=== PATIENT | male | born 1950 | race Caucasian/White ===

== ENCOUNTER 2020-08-10 13:57 | Emergency (ER) | payer OTHER ==
--- NOTE | 2020-08-10 14:15 | ERPHSYRPT ---
- History of Present Illness Time Seen by Provider: 08/10/20 14:14 Historian: patient, family Exam Limitations: no limitations Patient Subjective Stated Complaint: pt here for n/v and dizzines and headache today.he feels like he is unsteady Triage Nursing Assessment: pt alert, but sleepy, arrived per wc, resp easy, face mask in place, skin wd/dp Physician History: This is a 70-year-old white male has a history of Parkinson's disease and presents with initial "upset stomach" followed by several episodes of vomiting a nd then dizziness. 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 Patient had a history of positive COVID-19 infection back in February 2020 and he has not been tested recently. Family members around him have all had a vaccine for the COVID-19. Patient has not been on any new medications. He also has an associated headache. He did not hit his head. He does not have chest pain he does not have any shortness of breath. He has not had fevers or chills. Patient's primary care physician is Dr. Chan. Timing/Duration: today Activities at Onset: none Quality: other ("Generalized upset stomach") Abdominal Pain Onset Location: generalized abdomen Pain Radiation: no radiation Severity of Pain-Max: none Severity of Pain-Current: none Allergies/Adverse Reactions: Penicillins Allergy (Verified 08/10/20 14:06) kidney pain Sulfa (Sulfonamide Antibiotics) Allergy (Verified 08/10/20 14:06) kidney pain Home Medications: Sildenafil Citrate [Viagra] 50 mg PO UD 03/15/15 [History] Carbidopa/Levodopa 25/100 mg [Sinemet 25/100 MG] 1 ea QID 08/10/20 [History] Hx Tetanus, Diphtheria Vaccination/Date Given: No Hx Influenza Vaccination/Date Given: No Hx Pneumococcal Vaccination/Date Given: No Immunizations Up to Date: Yes Travel Risk - International Travel Have you traveled outside of the country in past 3 weeks: No - Coronavirus Screening Are you exhibiting any of the following symptoms?: Yes Symptoms: Vomiting/Diarrhea Close contact with a COVID-19 positive Pt in past 14-21 Days: No - Vaccine Status Have you recieved a Covid-19 vaccination: No - Review of Systems Constitutional: Weakness Eyes: No Symptoms Ears, Nose, & Throat: No Symptoms Respiratory: No Symptoms Cardiac: No Symptoms Abdominal/Gastrointestinal: Nausea, Vomiting, No Abdominal Pain Genitourinary Symptoms: No Symptoms Musculoskeletal: No Symptoms Skin: No Symptoms Neurological: No Symptoms Psychological: No Symptoms Endocrine: No Symptoms Hematologic/Lymphatic: No Symptoms Immunological/Allergic: No Symptoms All Other Systems: Reviewed and Negative - Past Medical History Pertinent Past Medical History: Yes Neurological History: Migraines ENT History: No Pertinent History Cardiac History: No Pertinent History Respiratory History: No Pertinent History Endocrine Medical History: No Pertinent History Musculoskeletal History: Arthritis GI Medical History: Gallbladder Disease History: No Pertinent History Psycho-Social History: No Pertinent History Male Reproductive Disorders: Prostate Problems, Other Other Medical History: parkinsons - Past Surgical History Past Surgical History: Yes Neuro Surgical History: No Pertinent History Cardiac: No Pertinent History Respiratory: No Pertinent History Gastrointestinal: No Pertinent History Genitourinary: No Pertinent History Musculoskeletal: Joint Replacement, Orthopedic Surgery Male Surgical History: No Pertinent History Other Surgical History: right hip replacement, right ankle - Social History Smoking Status: Former smoker How long have you smoked: 4 years Exposure to second hand smoke: No Drug Use: none Patient Lives Alone: No - Nursing Vital Signs Nursing Vital Signs: Initial Vital Signs Temperature 97.6 F 08/10/20 14:00 Pulse Rate 88 08/10/20 14:00 Respiratory Rate 16 08/10/20 14:00 Blood Pressure 132/82 08/10/20 14:00 O2 Sat by Pulse Oximetry 97 08/10/20 14:00 Pain Scale Pain Intensity 0 - Physical Exam General Appearance: no apparent distress, alert, anxiety Eye Exam: PERRL/EOMI, eyes nml inspection Ears, Nose, Throat Exam: normal ENT inspection, moist mucous membranes Neck Exam: normal inspection, non-tender, supple, full range of motion Respiratory Exam: normal breath sounds, lungs clear, airway intact, No chest tenderness, No respiratory distress Cardiovascular Exam: regular rate/rhythm, normal heart sounds, normal peripheral pulses Gastrointestinal/Abdomen Exam: soft, normal bowel sounds, No tenderness, No guarding Rectal Exam: not done Back Exam: normal inspection, normal range of motion, No CVA tenderness, No vertebral tenderness Extremity Exam: normal inspection, normal range of motion, pelvis stable Neurologic Exam: alert, oriented x 3, cooperative, 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 However there are borderline T wave abnormalities present in the inferior leads. When compared to an EKG dated 03/05/2015 the borderline T abnormalities are new. However the remainder of the EKG has not changed.) Ordered Tests: Active Orders 24 hr Category Date Time Status EKG-ER Only STAT Care 08/10/20 14:23 Active IV Insertion STAT Care 08/10/20 14:23 Active HEAD WITHOUT CONTRAST [CT] Stat Exams 08/10/20 14:25 Completed AMYLASE Stat Lab 08/10/20 15:02 Completed BLOOD CULTURE Stat Lab 08/10/20 15:10 Ordered CBC W DIFF Stat Lab 08/10/20 15:02 Completed CMP Stat Lab 08/10/20 15:02 Completed INFLUENZA A+B SHELLY Stat Lab 08/10/20 15:10 Completed LIPASE Stat Lab 08/10/20 15:02 Completed Lactic Acid Stat Lab 08/10/20 14:23 Completed Lactic Acid Stat Lab 08/10/20 16:40 Received [place] Screen Stat Lab 08/10/20 Completed TROPONIN Q3H Lab 08/10/20 15:02 Completed TROPONIN Q3H Lab 08/10/20 17:30 Ordered TROPONIN Q3H Lab 08/10/20 20:30 Ordered TROPONIN Q3H Lab 08/10/20 23:30 Ordered TROPONIN Q3H Lab 08/11/20 02:30 Ordered UA W/RFX UR CULTURE Stat Lab 08/10/20 15:58 Completed Medication Summary Generic Name Dose Route Start Last Admin Trade Name Freq PRN Reason Stop Dose Admin Sodium Chloride 1,000 mls @ 999 mls/hr 08/10/20 15:48 08/10/20 15:59 Sodium Chloride 0.9% 1000 Ml IV 08/10/20 16:48 999 mls/hr .Q1H1M STA Administration Discontinued Medications Generic Name Dose Route Start Last Admin Trade Name Freq PRN Reason Stop Dose Admin Sodium Chloride 1,000 mls @ 999 mls/hr 08/10/20 14:23 08/10/20 15:58 Sodium Chloride 0.9% 1000 Ml IV 08/10/20 15:23 Infused .Q1H1M STA Infusion Sodium Chloride Confirm 08/10/20 14:32 Sodium Chloride 0.9% 1000 Ml Administered 08/10/20 14:33 Dose 1,000 mls @ ud .ROUTE .STK-MED ONE Sodium Chloride Confirm 08/10/20 15:57 Sodium Chloride 0.9% 1000 Ml Administered 08/10/20 15:58 Dose 1,000 mls @ ud .ROUTE .STK-MED ONE Ondansetron HCl 4 mg 08/10/20 14:23 08/10/20 14:34 Zofran 4 Mg/2 Ml Vial IV 08/10/20 14:24 4 mg STAT ONE Administration Ondansetron HCl Confirm 08/10/20 14:31 Zofran 4 Mg/2 Ml Vial Administered 08/10/20 14:32 Dose 4 mg .ROUTE .STK-MED ONE Lab/Rad Data: Laboratory Result Diagrams 08/10/20 15:02 08/10/20 15:02 Laboratory Results 08/10/20 08/10/20 08/10/20 Range/Units Unknown 15:58 15:10 WBC (4.0-10.5) K/mm3 RBC (4.1-5.6) M/mm3 Hgb (12.5-18.0) gm/dl Hct (42-50) % MCV (78-100) fl MCH (26-32) pg MCHC (32-36) g/dl RDW (11.5-14.0) % Plt Count (150-450) K/mm3 MPV (7.5-11.0) fl Gran % (36.0-66.0) % Eos # (Auto) (0-0.5) Absolute Lymphs (auto) (1.0-4.6) Absolute Monos (auto) (0.0-1.3) Lymphocytes % (24.0-44.0) % Monocytes % (0.0-12.0) % Eosinophils % (0.00-5.0) % Basophils % (0.0-0.4) % Absolute Granulocytes (1.4-6.9) Basophils # (0-0.4) Sodium (137-145) mmol/L Potassium (3.5-5.1) mmol/L Chloride (98-107) mmol/L Carbon Dioxide (22-30) mmol/L Anion Gap (5-15) MEQ/L BUN (9-20) mg/dL Creatinine (0.66-1.25) mg/dL Estimated GFR ML/MIN Glucose (74-106) mg/dL Lactic Acid (0.4-2.0) Calcium (8.4-10.2) mg/dL Total Bilirubin (0.2-1.3) mg/dL AST (17-59) U/L ALT (0-50) U/L Alkaline Phosphatase (38-126) U/L Troponin I (0.000-0.034) ng/mL Serum Total Protein (6.3-8.2) g/dL Albumin (3.5-5.0) g/dL Amylase (30-110) U/L Lipase (23-300) U/L Urine Color YELLOW (YELLOW) Urine Appearance CLEAR (CLEAR) Urine pH 5.0 (5-6) Ur Specific [place] 1.024 (1.005-1.025) Urine Protein NEGATIVE (Negative) Urine Ketones SMALL (NEGATIVE) Urine Blood MODERATE (0-5) Drake/ul Urine Nitrite NEGATIVE (NEGATIVE) Urine Bilirubin NEGATIVE (NEGATIVE) Urine Urobilinogen NEGATIVE (0-1) mg/dL Ur Leukocyte Esterase NEGATIVE (NEGATIVE) Urine WBC (Auto) NONE (0-5) /HPF Urine RBC (Auto) 16-25 (0-2) /HPF U Hyaline Cast (Auto) 0-2 (0-2) /LPF U Epithel Cells (Auto) NONE (FEW) /HPF Urine Bacteria (Auto) NONE (NEGATIVE) /HPF Urine Mucus (Auto) SLIGHT (NEGATIVE) /HPF Urine Culture Reflexed NO (NO) Urine Glucose NEGATIVE (NEGATIVE) mg/dL Monoscreen NEGATIVE (Negative) Influenza Type A Ag NEGATIVE (NEGATIVE) Influenza Type B Ag NEGATIVE (NEGATIVE) 08/10/20 08/10/20 08/10/20 Range/Units 15:02 15:02 15:02 WBC 13.3 H (4.0-10.5) K/mm3 RBC 4.88 (4.1-5.6) M/mm3 Hgb 16.5 (12.5-18.0) gm/dl Hct 47.4 (42-50) % MCV 97.1 (78-100) fl MCH 33.8 H (26-32) pg MCHC 34.8 (32-36) g/dl RDW 12.7 (11.5-14.0) % Plt Count 146 L (150-450) K/mm3 MPV 9.1 (7.5-11.0) fl Gran % 91.3 H (36.0-66.0) % Eos # (Auto) 0.03 (0-0.5) Absolute Lymphs (auto) 0.62 L (1.0-4.6) Absolute Monos (auto) 0.49 (0.0-1.3) Lymphocytes % 4.7 L (24.0-44.0) % Monocytes % 3.7 (0.0-12.0) % Eosinophils % 0.2 (0.00-5.0) % Basophils % 0.1 (0.0-0.4) % Absolute Granulocytes 12.10 H (1.4-6.9) Basophils # 0.01 (0-0.4) Sodium 135 L (137-145) mmol/L Potassium 3.9 (3.5-5.1) mmol/L Chloride 102 (98-107) mmol/L Carbon Dioxide 21 L (22-30) mmol/L Anion Gap 16.0 H (5-15) MEQ/L BUN 21 H (9-20) mg/dL Creatinine 0.99 (0.66-1.25) mg/dL Estimated GFR > 60.0 ML/MIN Glucose 176 H (74-106) mg/dL Lactic Acid (0.4-2.0) Calcium 8.8 (8.4-10.2) mg/dL Total Bilirubin 1.00 (0.2-1.3) mg/dL AST 28 (17-59) U/L ALT 17 (0-50) U/L Alkaline Phosphatase 82 (38-126) U/L Troponin I < 0.012 (0.000-0.034) ng/mL Serum Total Protein 7.0 (6.3-8.2) g/dL Albumin 4.1 (3.5-5.0) g/dL Amylase 66 (30-110) U/L Lipase 80 (23-300) U/L Urine Color (YELLOW) Urine Appearance (CLEAR) Urine pH (5-6) Ur Specific [place] (1.005-1.025) Urine Protein (Negative) Urine Ketones (NEGATIVE) Urine Blood (0-5) Drake/ul Urine Nitrite (NEGATIVE) Urine Bilirubin (NEGATIVE) Urine Urobilinogen (0-1) mg/dL Ur Leukocyte Esterase (NEGATIVE) Urine WBC (Auto) (0-5) /HPF Urine RBC (Auto) (0-2) /HPF U Hyaline Cast (Auto) (0-2) /LPF U Epithel Cells (Auto) (FEW) /HPF Urine Bacteria (Auto) (NEGATIVE) /HPF Urine Mucus (Auto) (NEGATIVE) /HPF Urine Culture Reflexed (NO) Urine Glucose (NEGATIVE) mg/dL Monoscreen (Negative) Influenza Type A Ag (NEGATIVE) Influenza Type B Ag (NEGATIVE) 08/10/20 Range/Units 14:23 WBC (4.0-10.5) K/mm3 RBC (4.1-5.6) M/mm3 Hgb (12.5-18.0) gm/dl Hct (42-50) % MCV (78-100) fl MCH (26-32) pg MCHC (32-36) g/dl RDW (11.5-14.0) % Plt Count (150-450) K/mm3 MPV (7.5-11.0) fl Gran % (36.0-66.0) % Eos # (Auto) (0-0.5) Absolute Lymphs (auto) (1.0-4.6) Absolute Monos (auto) (0.0-1.3) Lymphocytes % (24.0-44.0) % Monocytes % (0.0-12.0) % Eosinophils % (0.00-5.0) % Basophils % (0.0-0.4) % Absolute Granulocytes (1.4-6.9) Basophils # (0-0.4) Sodium (137-145) mmol/L Potassium (3.5-5.1) mmol/L Chloride (98-107) mmol/L Carbon Dioxide (22-30) mmol/L Anion Gap (5-15) MEQ/L BUN (9-20) mg/dL Creatinine (0.66-1.25) mg/dL Estimated GFR ML/MIN Glucose (74-106) mg/dL Lactic Acid 3.3 H (0.4-2.0) Calcium (8.4-10.2) mg/dL Total Bilirubin (0.2-1.3) mg/dL AST (17-59) U/L ALT (0-50) U/L Alkaline Phosphatase (38-126) U/L Troponin I (0.000-0.034) ng/mL Serum Total Protein (6.3-8.2) g/dL Albumin (3.5-5.0) g/dL Amylase (30-110) U/L Lipase (23-300) U/L Urine Color (YELLOW) Urine Appearance (CLEAR) Urine pH (5-6) Ur Specific [place] (1.005-1.025) Urine Protein (Negative) Urine Ketones (NEGATIVE) Urine Blood (0-5) Drake/ul Urine Nitrite (NEGATIVE) Urine Bilirubin (NEGATIVE) Urine Urobilinogen (0-1) mg/dL Ur Leukocyte Esterase (NEGATIVE) Urine WBC (Auto) (0-5) /HPF Urine RBC (Auto) (0-2) /HPF U Hyaline Cast (Auto) (0-2) /LPF U Epithel Cells (Auto) (FEW) /HPF Urine Bacteria (Auto) (NEGATIVE) /HPF Urine Mucus (Auto) (NEGATIVE) /HPF Urine Culture Reflexed (NO) Urine Glucose (NEGATIVE) mg/dL Monoscreen (Negative) Influenza Type A Ag (NEGATIVE) Influenza Type B Ag (NEGATIVE) - Progress Progress: improved Progress Note: 08/10/20 15:[address] of head without contrast 08/10/20 16:16 Patient states she is feeling a lot better. Counseled pt/family regarding: lab results, diagnosis, need for follow-up, rad results - Departure Departure Disposition: Home Clinical Impression: Vomiting, Mild dehydration Condition: Stable Critical Care Time: No Referrals: DEVIN CHAN MD [Primary Care Provider] - Additional Instructions: Drink plenty of fluids. Call Dr. Chan's office tomorrow to make arrangements for follow-up appointment. Return to the emergency department if symptoms worsen. Continue your medications as prescribed. Quarantine yourself until the results of your COVID-19 lab test has returned. Prescriptions: Ondansetron ODT 4 MG [Zofran Odt 4 mg] 4 mg PO Q6H PRN PRN #10 tab.rapdis PRN Reason: Vomiting
[2020-08-10] MEDS ORDERED: Zofran 4 MG/2 ML VIAL ONE (14:31)
[2020-08-10] MEDS ORDERED: Sodium Chloride 0.9% 1000 ML 1,000 ML ONE ×2 (14:32→15:57)
[2020-08-10] MEDS: Sodium Chloride 0.9% 1000 ML 1,000 ML IV STA ×2 (14:33→15:59)
[2020-08-10] MEDS: Zofran 4 MG/2 ML VIAL IV ONE (14:34)
[2020-08-10 15:03] LABS: BASOPHIL % 0.1 % (0.0-0.4); Basophil (Absolute #) 0.01 (0-0.4); Eosinophil % 0.2 % (0.00-5.0); Eosinophil (Absolute #) 0.03 (0-0.5); Hematocrit 47.4 % (42-50); Hemoglobin 16.5 gm/dl (12.5-18.0); Lymphocyte (Absolute #) 0.62 (1.0-4.6); Lymphocytes % 4.7 % (24.0-44.0); Mean Cell Volume 97.1 fl (78-100); Mean Corpuscular Hemoglobin 33.8 pg (26-32); Mean Corpuscular Hgb Concent. 34.8 g/dl (32-36); Mean Platelet Volume 9.1 fl (7.5-11.0); Monocyte (Absolute #) 0.49 (0.0-1.3); Monocytes % 3.7 % (0.0-12.0); Neutrophil % 91.3 % (36.0-66.0); Platelet Count 146 K/mm3 (150-450); Red Blood Count 4.88 M/mm3 (4.1-5.6); Red Cell Distribution Width 12.7 % (11.5-14.0); White Blood Count 13.3 K/mm3 (4.0-10.5)
[2020-08-10 15:16] LABS: ALBUMIN 4.1 g/dL (3.5-5.0); ALKALINE PHOSPHATASE 82 U/L (38-126); AMYLASE 66 U/L (30-110); BLOOD UREA NITROGEN 21 mg/dL (9-20); CHLORIDE 102 mmol/L (98-107); Calcium 8.8 mg/dL (8.4-10.2); Carbon Dioxide 21 mmol/L (22-30); Creatinine 1 0.99 mg/dL (0.66-1.25); EST GLOMERULAR FILTRATION RATE > 60.0 ML/MIN; Glucose 176 mg/dL (74-106); LIPASE 80 U/L (23-300); Potassium 3.9 mmol/L (3.5-5.1); SGOT/AST 28 U/L (17-59); SGPT/ALT 17 U/L (0-50); SODIUM 135 mmol/L (137-145)
--- NOTE | 2020-08-10 15:23 | XRAY ---
Indication: Dizziness, nausea, and vomiting. History of Parkinson's disease. Multiple contiguous axial images obtained through the head without contrast. Comparison: None Normal appearing brain parenchyma, ventricles, and bony calvarium for patient's age. Visualized paranasal sinuses and mastoid air cells are clear. Impression: Normal CT head without contrast exam.
[2020-08-10 15:28] LABS: INFLUENZA A NEGATIVE (NEGATIVE); INFLUENZA B NEGATIVE (NEGATIVE)
[2020-08-10 16:41] LABS: Appearance CLEAR (CLEAR); Bilirubin NEGATIVE (NEGATIVE); Blood MODERATE Ery/ul (0-5); Glucose NEGATIVE (NEGATIVE); Hyaline Casts 0-2 /LPF (0-2); Ketones SMALL (NEGATIVE); Leukocyte Esterase NEGATIVE (NEGATIVE); Mucus SLIGHT /HPF (NEGATIVE); Nitrite NEGATIVE (NEGATIVE); Protein,Urine Dip NEGATIVE (Negative); Specific Gravity 1.024 (1.005-1.025); Urobilinogen NEGATIVE mg/dL (0-1)
[2020-08-10 17:03] VITALS: BP 120/71; PULSE 100; O2SAT 95
== END 2020-08-10 17:16 | disposition home or self-care (01) ==
LOC: ED 13:57
DX: R11.11 Vomiting without nausea (principal); E86.0 Dehydration
CPT/HCPCS: 36000; 36415; 70450; 80053; 81001; 82150; 83605; 83690; 84484; 85025; 86308; 87040; 87400; 93005; 96360; 96361; 96374; 99284; U0003; J2405

== ENCOUNTER 2021-12-14 05:56 | Emergency (ER) | payer OTHER ==
[2021-12-14] MEDS ORDERED: MORPHINE SULFATE 4 MG INJ IV ONE (06:40)
--- NOTE | 2021-12-14 06:40 | ERPHSYRPT ---
- History of Present Illness Time Seen by Provider: 12/14/21 06:36 Source: patient Exam Limitations: no limitations Patient Subjective Stated Complaint: pt states he has been having extreme sciatic pain. c/o lt back painradiating down to lt knee at times. Triage Nursing Assessment: pt arrive per ambulance and transfers to stretcher with assist of 5. pt c/o pain with movement. pt alert and oriented, answers questions approp. skin pink warm and dry. open areas to lt anterior lower leg. pedal pulse and cap refill to lt lower wnl. pt reports no diff bowel or bladder incontinence. Physician History: Patient is a 71-year-old male presents to our ED via EMS for evaluation of acute onset low back pain. Patient admits to history of chronic low back pain. Patient awoke early this morning went to the restroom sat on the toilet. He had no difficulty voiding. Upon standing patient experienced a severe lower lumbar pain radiated to his left leg. Patient had left knee surgery approximately 3 months ago. No fever. No recent back procedure. No saddle anesthesia. No change in bowel bladder function. Pain worse with movement and palpation. Pain improved with rest. Patient received 15 mg of Toradol IV prior to arrival. This improved patient's pain from severe to 3 out of 10. Patient is comfortable as long as he is laying flat. Patient has been experiencing some low back pain over the past week but became acutely worse this morning. Son at bedside. They voiced no other complaints or concerns at this time. Timing/Duration: today Method of Injury: bending Quality: sharp Back Pain Location: lumbar spine Back Pain Radiation: lower legs (Pain radiates down left lower leg.) Severity of Pain-Max: moderate Severity of Pain-Current: mild Modifying Factors: Improves With: movement Associated Symptoms: other (No associated abdominal pain or chest pain. No lower extremity weakness), No light-headedness, No dizziness Previous symptoms: same symptoms as today (Patient has had similar pain in the past however not to this level of intensity) Allergies/Adverse Reactions: Penicillins Allergy (Verified 12/14/21 06:18) kidney pain Sulfa (Sulfonamide Antibiotics) Allergy (Verified 12/14/21 06:18) kidney pain Home Medications: Sildenafil Citrate [Viagra] 50 mg PO UD 03/15/15 [History] Carbidopa/Levodopa 25/100 mg [Sinemet 25/100 MG] 1 ea QID 08/10/20 [History] Hx Tetanus, Diphtheria Vaccination/Date Given: No Hx Influenza Vaccination/Date Given: No Hx Pneumococcal Vaccination/Date Given: No Immunizations Up to Date: No Travel Risk - International Travel Have you traveled outside of the country in past 3 weeks: No - Coronavirus Screening Are you exhibiting any of the following symptoms?: No Close contact with a COVID-19 positive Pt in past 14-21 Days: No - Vaccine Status Have you recieved a Covid-19 vaccination: No - Review of Systems Constitutional: No Symptoms, No Fever, No Chills Eyes: No Symptoms Ears, Nose, & Throat: No Symptoms Respiratory: No Symptoms, No Cough, No Dyspnea Cardiac: No Symptoms, No Chest Pain, No Edema, No Syncope Abdominal/Gastrointestinal: No Symptoms, No Abdominal Pain, No Nausea, No Vomiting, No Diarrhea Genitourinary Symptoms: No Symptoms, No Dysuria Musculoskeletal: No Symptoms, No Back Pain, No Neck Pain Skin: No Symptoms, No Rash Neurological: No Symptoms, No Dizziness, No Focal Weakness, No Sensory Changes Psychological: No Symptoms Endocrine: No Symptoms Hematologic/Lymphatic: No Symptoms Immunological/Allergic: No Symptoms All Other Systems: Reviewed and Negative - Past Medical History Pertinent Past Medical History: Yes Neurological History: Migraines ENT History: No Pertinent History Cardiac History: No Pertinent History Respiratory History: No Pertinent History Endocrine Medical History: No Pertinent History Musculoskeletal History: Arthritis GI Medical History: Gallbladder Disease History: No Pertinent History Psycho-Social History: No Pertinent History Male Reproductive Disorders: Prostate Problems, Other Other Medical History: parkinsons - Past Surgical History Past Surgical History: Yes Neuro Surgical History: No Pertinent History Cardiac: No Pertinent History Respiratory: No Pertinent History Gastrointestinal: Cholecystectomy Genitourinary: No Pertinent History Musculoskeletal: Joint Replacement, Orthopedic Surgery Male Surgical History: No Pertinent History Other Surgical History: right hip replacement, right ankle, lt knee replacement - Social History Smoking Status: Former smoker How long have you smoked: 4 years Exposure to second hand smoke: No Drug Use: none Patient Lives Alone: No - Nursing Vital Signs Nursing Vital Signs: Initial Vital Signs Temperature 97.6 F 12/14/21 05:59 Pulse Rate 66 12/14/21 05:59 Respiratory Rate 16 12/14/21 05:59 Blood Pressure 144/86 12/14/21 05:59 O2 Sat by Pulse Oximetry 100 12/14/21 05:59 Pain Scale Pain Intensity [Left Back] 4 Pain Intensity 4 - Physical Exam General Appearance: no apparent distress, alert Eye Exam: PERRL/EOMI, eyes nml inspection Ears, Nose, Throat Exam: normal ENT inspection, TMs normal, pharynx normal Neck Exam: normal inspection, non-tender, supple, full range of motion, No meningismus, No midline tenderness Respiratory Exam: normal breath sounds, lungs clear, airway intact, No respiratory distress Cardiovascular Exam: regular rate/rhythm, normal heart sounds, normal peripheral pulses Gastrointestinal Exam: soft, No normal bowel sounds, No tenderness, No mass Back Exam: other (Tenderness to palpation at the lumbar sacral spine. Overlying soft tissue intact. Pain reproduced with palpation.) Extremity Exam: normal inspection, normal range of motion, No calf tenderness, No pedal edema Peripheral Pulses: dorsalis-pedis (R): 2+, dorsalis-pedis (L): 2+ Neurologic Exam: alert, oriented x 3, cooperative, entry operator II-XII nml as tested, normal mood/affect, nml station & gait, sensation nml, No motor deficits Skin Exam: normal color, warm, dry, No rash Lymphatic Exam: No adenopathy SpO2 Interpretation: normal SpO2: 100 O2 Delivery: Room Air - Course Nursing assessment & vital signs reviewed: Yes Ordered Tests: Active Orders 24 hr Category Date Time Status LUMBAR SPINE W/O [CT] Stat Exams 12/14/21 06:32 Ordered UA W/RFX CULTURE Stat Lab 12/14/21 Ordered - Progress Progress: improved Progress Note: Patient endorsed to Dr. Dukes at approximately [address] scan and urinalysis pending. Dr. Dukes make final disposition. 12/14/21 06:47 Counseled pt/family regarding: diagnosis, rad results - Departure Clinical Impression: Sciatica, Lumbosacral strain Condition: Stable Critical Care Time: No Referrals: DEVIN CHAN MD [Primary Care Provider] - Follow up/PCP as directed
[2021-12-14] MEDS ORDERED: MORPHINE SULFATE 4 MG INJ ONE (06:41)
[2021-12-14 08:25] LABS: RBC 0-2 /HPF (0-2)
[2021-12-14 08:26] LABS: Appearance CLEAR (CLEAR); Bilirubin NEGATIVE (NEGATIVE); Dipstick done @ ? MAIN LAB; Glucose NEGATIVE (NEGATIVE); Ketones NEGATIVE (NEGATIVE); Nitrite NEGATIVE (NEGATIVE); Ph 7.5 (5-6); Protein,Urine Dip NEGATIVE (Negative); RBC TRACE-LYSED Ery/ul (0-5); Specific Gravity 1.015 (1.005-1.025); Urobilinogen 0.2 mg/dL (0-1)
[2021-12-14 08:27] LABS: Urine Cultured Indicated? NO
[2021-12-14] MEDS ORDERED: solu-MEDROL 125 MG, Sterile H2O 10 ml 2 ML IM ONE ×2 (08:27)
[2021-12-14] MEDS ORDERED: Norflex 60 MG/2 ML IM ONE (08:28)
[2021-12-14] MEDS ORDERED: PERCOCET TABLET 5/325MG PO STA (08:28)
[2021-12-14] MEDS ORDERED: Norflex 60 MG/2 ML ONE (08:32)
[2021-12-14] MEDS ORDERED: Sterile H2O 10 ml IJ ONE (08:32)
[2021-12-14] MEDS ORDERED: PERCOCET TABLET 5/325MG ONE (08:32)
[2021-12-14] MEDS ORDERED: solu-MEDROL ONE (08:33)
--- NOTE | 2021-12-14 08:53 | XRAY ---
Indication: Low back, left leg, and left flank pain. Multiple contiguous axial images obtained through the lumbar spine. Sagittal and coronal reformatted images obtained. Comparison: CT abdomen/pelvis March 05, 2015 Axial images again demonstrate mild broad-based disc bulge at L3-S1 levels and minimal L4-L5 degenerative vacuum disc phenomena. Facets are symmetric again with L5-S1 degenerative facet hypertrophy. No acute fracture, suspicious bony lesions, or spinal canal stenosis. Sagittal and coronal reformatted images again demonstrates normal lumbar alignment. Stable L4-L5 disc space narrowing. No acute compression fracture or subluxation. Visualized noncontrasted soft tissues again demonstrates minimal aortoiliac calcifications. Impression: 1. Grossly stable L3-S1 degenerative disc disease. Outpatient MRI may yield further information if there remains further clinical concern. 2. Again incidental arteriosclerotic disease. 3. Remaining CT lumbar spine without contrast exam is negative.
[2021-12-14 08:57] VITALS: PULSE 76; O2SAT 100
[2021-12-14 09:05] VITALS: BP 147/86
== END 2021-12-14 09:24 | disposition home or self-care (01) ==
LOC: ED 05:56
DX: M54.32 Sciatica, left side (principal); S39.012A Strain of muscle, fascia and tendon of lower back, initial encounter; Z79.899 Other long term (current) drug therapy; Z28.310 Unvaccinated for COVID-19
CPT/HCPCS: 36000; 72131; 81015; 96372; 96374; 99284; J2270; J2360; J2930; A9270-GY

== ENCOUNTER 2023-07-16 21:02 | Emergency (ER) | payer OTHER ==
[2023-07-16 21:54] VITALS: O2SAT 97
[2023-07-16 22:07] VITALS: TEMP 98.3
--- NOTE | 2023-07-16 23:02 | ERPHSYRPT ---
- History of Present Illness Time Seen by Provider: 07/16/23 22:35 Source: patient Exam Limitations: no limitations Patient Subjective Stated Complaint: Scratched left leg about a week ago and yesterday it started getting red and swollen and feeling like it's pumping up. Triage Nursing Assessment: Pt ambulated to room with slight limp on left side. LLE erythema present with small amount of serous drainage. +2 pitting edema also present. Left pedal pulse and left post tibial pulse present but weaker than right side. Denies numbness or tingling. Physician History: 73yo m presents to ED by private vehicle for left lower extremity redness and swelling. Pt states he was diagnosed w/ cellulitis 5d ago, has been taking doxycycline daily from his PCP. Pt states the swelling and redness has progressed and has become painful. Pt denies hx of blood clots, does not take blood thinner. Pt denies ORTIZ, fevers, cp, soa, n/v. Occurred: last week Quality: intermittent Severity of Pain-Max: mild Severity of Pain-Current: mild Allergies/Adverse Reactions: Penicillins Allergy (Verified 07/16/23 21:56) kidney pain Sulfa (Sulfonamide Antibiotics) Allergy (Verified 07/16/23 21:56) kidney pain Home Medications: Sildenafil Citrate [Viagra] 50 mg PO UD 03/15/15 [History] Carbidopa/Levodopa 25/100 mg [Sinemet 25/100 MG] 1 ea PO UD 08/10/20 [History] Tamsulosin HCl 0.4 mg [Flomax 0.4 MG] 0.8 mg PO DAILY 07/16/23 [History] Hx Tetanus, Diphtheria Vaccination/Date Given: No Hx Influenza Vaccination/Date Given: No Hx Pneumococcal Vaccination/Date Given: No Travel Risk - International Travel Have you traveled outside of the country in past 3 weeks: No - Emerging Infectious Disease Are you exhibiting symptoms associated with any current EIDs: No - Past Medical History Pertinent Past Medical History: Yes Neurological History: Migraines, Other ENT History: No Pertinent History Cardiac History: No Pertinent History Respiratory History: No Pertinent History Endocrine Medical History: No Pertinent History Musculoskeletal History: Arthritis GI Medical History: Gallbladder Disease History: No Pertinent History Psycho-Social History: No Pertinent History Male Reproductive Disorders: Prostate Problems, Other Other Medical History: PARKINSON'S DIAGNOSIS IN 2020. - Past Surgical History Past Surgical History: Yes Neuro Surgical History: No Pertinent History Cardiac: No Pertinent History Respiratory: No Pertinent History Gastrointestinal: Cholecystectomy Genitourinary: No Pertinent History Musculoskeletal: Joint Replacement, Orthopedic Surgery Male Surgical History: No Pertinent History Other Surgical History: right hip replacement 2006, right ankle 1974, lt knee replacement - Social History Smoking Status: Former smoker How long have you smoked: 4 years Exposure to second hand smoke: No Drug Use: none Patient Lives Alone: No - Nursing Vital Signs Nursing Vital Signs: Initial Vital Signs Temperature 98.3 F 07/16/23 21:34 Pulse Rate 96 H 07/16/23 21:34 Respiratory Rate 18 07/16/23 21:34 Blood Pressure 150/70 07/16/23 21:34 O2 Sat by Pulse Oximetry 97 07/16/23 21:34 Pain Scale Pain Intensity 8 - Physical Exam SpO2: 97 Ordered Tests: Active Orders 24 hr Category Date Time Status VENOUS UNILAT/LIMITED EXTREMIT [US] Stat Exams 07/17/23 00:05 Taken CBC W DIFF Stat Lab 07/16/23 23:10 Completed CMP Stat Lab 07/16/23 23:10 Completed Lactic Acid Stat Lab 07/16/23 23:13 Completed Lab/Rad Data: Laboratory Result Diagrams 07/16/23 23:10 07/16/23 23:10 Laboratory Results 07/16/23 07/16/23 07/16/23 Range/Units 23:13 23:10 23:10 WBC 7.0 (4.0-10.5) x10^3/uL RBC 4.60 (4.1-5.6) x10^6/uL Hgb 15.4 (12.5-18.0) g/dL Hct 43.5 (42-50) % MCV 94.6 (78-100) fL MCH 33.5 H (26-32) pg MCHC 35.4 (32-36) g/dL RDW 12.6 (11.5-14.0) % Plt Count 144 L (150-450) x10^3/uL MPV 8.9 (7.5-11.0) fL Gran % 67.2 H (36.0-66.0) % Immature Gran % (Auto) 0.1 (0.00-0.4) % Nucleat RBC Rel Count 0.0 (0.00-0.1) % Eos # (Auto) 0.27 (0-0.5) x10^3/uL Immature Gran # (Auto) 0.01 (0.00-0.03) x10^3u/L Absolute Lymphs (auto) 1.41 (1.0-4.6) x10^3/uL Absolute Monos (auto) 0.59 (0.0-1.3) x10^3/uL Absolute Nucleated RBC 0.00 (0.00-0.01) x10^3u/L Lymphocytes % 20.1 L (24.0-44.0) % Monocytes % 8.4 (0.0-12.0) % Eosinophils % 3.9 (0.00-5.0) % Basophils % 0.3 (0.0-0.4) % Absolute Granulocytes 4.71 (1.4-6.9) x10^3/uL Basophils # 0.02 (0-0.4) x10^3/uL Sodium 139 (135-145) mmol/L Potassium 3.6 (3.5-5.1) mmol/L Chloride 109 H (98-107) mmol/L Carbon Dioxide 23 (22-30) mmol/L Anion Gap 10.7 (5-15) MEQ/L BUN 21 H (9-20) mg/dL Creatinine 1.26 H (0.66-1.25) mg/dL Estimated GFR 59.9 ML/MIN Glucose 99 (74-106) mg/dL Lactic Acid 1.0 (0.4-2.0) Calcium 8.6 (8.4-10.2) mg/dL Total Bilirubin 0.50 (0.2-1.3) mg/dL AST 22 (17-59) U/L ALT 8 (0-50) U/L Alkaline Phosphatase 91 (38-126) U/L Serum Total Protein 6.6 (6.3-8.2) g/dL Albumin 3.6 (3.5-5.0) g/dL - Progress Progress: unchanged Progress Note: 07/17/23 01:20 US LLE venous duplex negative for DVT likely cellulitis that has not been responding to doxycycline plan to dc home and start on keflex 500mg PO q6h x 5 plan for discharge home w/ close follow up w/ PCP Dr Chan plan to stop doxycycline, start cephalexin 500mg every 6 hours for 5d will wrap left leg w/ non-stick gauze and LINA wrap for compression elevate Left leg when possible return to ED if: develop fevers, left leg swelling progresses, pain in left leg becomes unbearable Medical Desision Making - Diagnostic Testing Diagnostic test were ordered, analyzed, and reviewed by me: Yes Radiological Interpretation: Reviewed by me, Teleradiologist Report - Risk of complications The pt has a mod risk of morbidity or mortality based on: Need for prescription drug management - Departure Departure Disposition: Home Clinical Impression: Left leg cellulitis Condition: Stable Critical Care Time: No Referrals: DEVIN CHAN MD [Primary Care Provider] - Follow up/PCP as directed Additional Instructions: plan for discharge home w/ close follow up w/ PCP Dr Chan plan to stop doxycycline, start cephalexin 500mg every 6 hours for 5d will wrap left leg w/ non-stick gauze and LINA wrap for compression elevate Left leg when possible return to ED if: develop fevers, left leg swelling progresses, pain in left leg becomes unbearable Prescriptions: Cephalexin Mh 500 mg [Keflex 500 mg] 500 mg PO Q6H 5 Days #20 cap
[2023-07-16 23:13] LABS: Absolute Neutrophil Ct (ANC) 4.71 x10^3/uL (1.4-6.9); BASOPHIL % 0.3 % (0.0-0.4); Basophil (Absolute #) 0.02 x10^3/uL (0-0.4); Eosinophil % 3.9 % (0.00-5.0); Eosinophil (Absolute #) 0.27 x10^3/uL (0-0.5); Hematocrit 43.5 % (42-50); Hemoglobin 15.4 g/dL (12.5-18.0); IMMATURE GRAN # 0.01 x10^3u/L (0.00-0.03); IMMATURE GRAN % 0.1 % (0.00-0.4); Lymphocyte (Absolute #) 1.41 x10^3/uL (1.0-4.6); Lymphocytes % 20.1 % (24.0-44.0); Mean Cell Volume 94.6 fL (78-100); Mean Corpuscular Hemoglobin 33.5 pg (26-32); Mean Corpuscular Hgb Concent. 35.4 g/dL (32-36); Mean Platelet Volume 8.9 fL (7.5-11.0); Monocyte (Absolute #) 0.59 x10^3/uL (0.0-1.3); Monocytes % 8.4 % (0.0-12.0); Neutrophil % 67.2 % (36.0-66.0); Platelet Count 144 x10^3/uL (150-450); Red Cell Distribution Width 12.6 % (11.5-14.0)
[2023-07-16 23:26] LABS: ALBUMIN 3.6 g/dL (3.5-5.0); ANION GAP 10.7 MEQ/L (5-15); BILIRUBIN,TOTAL 0.5 mg/dL (0.2-1.3); Calcium 8.6 mg/dL (8.4-10.2); Creatinine 1 1.26 mg/dL (0.66-1.25); EST GLOMERULAR FILTRATION RATE 59.9 ML/MIN; Potassium 3.6 mmol/L (3.5-5.1); Total Protein 6.6 g/dL (6.3-8.2)
[2023-07-17 01:55] VITALS: BP 144/72; PULSE 86; RESP 20
--- NOTE | 2023-07-17 08:36 | XRAY ---
Indication: Swelling. DVT. Two-dimensional sonogram and color Doppler imaging major venous vessels left leg performed. Comparison: None No thrombus seen in the examined deep venous vessels left leg including greater saphenous vein. Veins demonstrate normal compressibility. Venous waveforms are normal with and without augmentation. Impression: Left leg negative for DVT. Comment: Preliminary report was given.
== END 2023-07-17 01:50 | disposition home or self-care (01) ==
LOC: ED 21:02
DX: L03.116 Cellulitis of left lower limb (principal); Z79.899 Other long term (current) drug therapy
CPT/HCPCS: 36415; 80053; 83605; 85025; 93971; 99283